=== PATIENT | male | born 1960 | race Caucasian/White ===

== ENCOUNTER 2019-09-21 12:07 | Emergency (ER) | payer BC ==
--- NOTE | 2019-09-21 12:25 | ED ---
GI/ HPI - HPI Summary HPI Summary: This patient is a 58 year old male presenting to [facility] with a chief complaint of black stool this morning. He states that he is currently on chemotherapy and had high doses of medication a week ago. He states his mantle cell lymphoma just went into remission. He states yesterday he went for a blood draw and his platelets were 5 and received a blood transfusion. he had mild nose bleed. Yesterday, he had a good appetite and normal bowel movements and today states he had a lack of appetite. He states he has never experienced black stool or GI bleed before. He denies fever, chills, nausea, and vomiting. Medications reviewed. Allergies noted. - History of Current Complaint Chief Complaint: EDGIBleed Time Seen by Provider: 09/21/19 12:15 Stated Complaint: BLOODY STOOL/LETHARGIC PER PT Hx Obtained From: Patient Onset/Duration: Started Hours Ago Pain Intensity: 0 - Allergy/Home Medications Allergies/Adverse Reactions: Allergies Allergy/AdvReac Type Severity Reaction Status Date / Time Sulfa (Sulfonamide Allergy Vomiting Verified 09/21/19 12:14 Antibiotics) Home Medications: Home Medications Escitalopram * [Lexapro 10 mg (NF)] 10 mg PO BEDTIME 09/21/19 [History Confirmed 09/21/19] Lisinopril/HCTZ 20/25(NF) [Zestoretic 20/(NF)] 1 tab PO DAILY 09/21/19 [ History Confirmed 09/21/19] Loratadine [Claritin] 10 mg PO DAILY 09/21/19 [History Confirmed 09/21/19] Valacyclovir HCl [Valacyclovir] 500 mg PO BEDTIME 09/21/19 [History Confirmed ] PMH/Surg Hx/FS Hx/Imm Hx Cardiovascular History: Reports: Hx Hypertension - Surgical History Surgery Procedure, Year, and Place: left thumb repair/pins Infectious Disease History: No Infectious Disease History: Denies: History Other Infectious Disease, Traveled Outside the [place] in Last 30 Days - Family History Known Family History: Positive: Hypertension - mother - Social History Alcohol Use: None Substance Use Type: Reports: None Smoking Status (MU): Never Smoked Tobacco Have You Smoked in the Last Year: No Review of Systems Negative: Fever, Chills Positive: Other - Black stool. Negative: Vomiting, Nausea All Other Systems Reviewed And Are Negative: Yes Physical Exam - Summary Physical Exam Summary: Constitutional: Well-developed, Well-nourished, Alert. (-) Distressed Skin: Warm, Dry HENT: Normocephalic; Atraumatic Eyes: Conjunctiva normal Neck: Musculoskeletal ROM normal neck. (-) JVD, (-) Stridor, (-) Tracheal deviation Cardio: Rhythm regular, rate normal, Heart sounds normal; Intact distal pulses; Radial pulses are 2+ and symmetric. (-) Murmur Pulmonary/Chest wall: Effort normal. (-) Respiratory distress, (-) Wheezes, (-) Rales Abd: Soft, (-) tenderness, (-) Distension, (-) Guarding, (-) Rebound Musculoskeletal: (-) Edema Lymph: (-) Cervical adenopathy Neuro: Alert, Oriented x3 Psych: Mood and affect Normal Rectal: Dark brown stool. Triage Information Reviewed: Yes Vital Signs On Initial Exam: Initial Vitals Temp Pulse Resp BP Pulse Ox 98.5 F 109 18 131/94 100 09/21/19 12:09 09/21/19 12:09 09/21/19 12:09 09/21/19 12:09 09/21/19 12:09 Vital Signs Reviewed: Yes Procedures - Sedation Patient Received Moderate/Deep Sedation with Procedure: No Diagnostics - Vital Signs Vital Signs Temp Pulse Resp BP Pulse Ox 09/21/19 12:09 98.5 F 109 18 131/94 100 - Laboratory Result Diagrams: 09/21/19 12:38 09/21/19 12:38 Lab Statement: Any lab studies that have been ordered have been reviewed, and results considered in the medical decision making process. Re-Evaluation - Re-Evaluation First Eval Re-Evaluation Time: 17:34 Comment: Patient had a bowel movement that looked dark but not melanotic. Patient is ready for discharge. GIGU Course/Dx - Course Course Of Treatment: Patient is here with 1 episode of black tarry stool. Upon arrival, patient's overall well-appearing with no symptoms. Patient is hemodynamically stable. Patient had brown stool on HEDY. Given patient's cancer history, blood was performed. Patient was found to be pancytopenic including an ANC count of 0. Patient's hemoglobin has dropped from 11-8 in the past couple of days. Oncology was called and they recommended one unit of packed red blood cells and discharge of patient was comfortable and clinically was well-appearing. Patient was offered admission but declined which was comfortable with. Patient had a stool in the ED which was dark brown but not tarry. - Diagnoses Provider Diagnoses: Pancytopenia, Mantle cell lymphoma, Melena - Physician Notifications Discussed Care Of Patient With: Preet Castillo - Hematology/Oncology Time Discussed With Above Provider: 13:21 - Give the patient one unit of PRBCs, and if he looks well clinically then he can be discharged. If the patient does not look well or does not want to be discharged, call back for admission plan. Discharge ED - Sign-Out/Discharge Documenting (check all that apply): Patient Departure - Discharge - Discharge Plan Condition: Stable Disposition: HOME Patient Education Materials: Chelsey (ED) Referrals: Deandra Muse MD [Medical Doctor] - Additional Instructions: Follow up with Dr. Muse. Return to the ED with worsening darkness in your stool, obvious blood in your stool, feeling faint, or have a fever. - Billing Disposition and Condition Condition: STABLE Disposition: Home - Attestation Statements Document Initiated by Amanda: Yes Documenting Scribe: Trevon Griffith Provider For Whom Amanda is Documenting (Include Credential): Garcia Garcia MD Scribe Attestation: I, Trevon Griffith scribed for Garcia Garcia MD on 09/21/19 at 1834. Scribe Documentation Reviewed: Yes Provider Attestation: The documentation as recorded by the Trevon navarro accurately reflects the service I personally performed and the decisions made by me, Garcia Garcia MD Status of Scribe Document: Viewed
[2019-09-21 13:04] LABS: INR 1.17 (0.82-1.09)
[2019-09-21 13:11] LABS: Albumin 4.3 g/dL (3.2-5.2); Calcium 8.9 mg/dL (8.6-10.3); Potassium 3.3 mmol/L (3.5-5.0); Total Bilirubin 0.8 mg/dL (0.2-1.0)
[2019-09-21 13:14] LABS: ABS Lymphocytes 0.2 10^3/ul (1.0-4.8); Eosinophil % 6.1 %; Lymphocyte % 88.9 %; Nucleated Red Blood Cells % 1.2
--- OUTSIDE RECORDS SUMMARY | 2019-09-21 13:14 | XMS REPORT | Summary of Care ---
:1960 Author Organization [facility] Address [address] [address] Care Team Providers Name Role Phone Latoya Cartwright MD Primary Care Provider Reason for Visit Reason Comments Lymphoma currently going through chemo; currently in full remission, has last round of chemo (09/09- 09/14) Hypertension f/u BP 118/58 Heartburn question Zantac extermination inspector use and if need to change med Encounter Details Date Type Department Care Team Description 09/06/2019 Office Visit Danielle Cartwright, Essential hypertension ( Primary Dx); Practice Latoya Souza MD Gastroesophageal reflux disease, esophagitis presence not specified; 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 9 TabIndications: Essential hypertension allopurinol Take 100 mg by 0 Active (ZYLOPRIM) 100 MG mouth DAILY. Oral Tab Cetirizine HCl Take 10 mg by 0 Active (ZYRTEC ALLERGY) 10 mouth DAILY. MG Oral Cap normal saline 0.9% by Intravenous 0 Active 500 mL with route ONE TIME. riTUXimab 100 MG/10ML SOLN IBRUTINIB PO Take 540 mg by 0 Active mouth DAILY. escitalopram Take 1 Tab by 90 Tab 1 Active (LEXAPRO) 10 MG Oral mouth EVERY 9 TabIndications: BEDTIME. Adjustment reaction with anxiety and depression Nebivolol HCl Take 0.5 Tabs 45 Tab 0 Active (BYSTOLIC) 2.5 MG by mouth DAILY. 9 Oral TabIndications: Essential hypertension Lidocaine-Prilocaine Apply to 0 Active 2.5-2.5 % Apply Port-A-Cath 9 externally Cream area 30 to 45 minutes prior to port access as directed (topical anesthetic). prochlorperazine Take 10 mg by 0 Active (COMPAZINE) 10 MG mouth. 9 Oral Tab sennosides-docusate Take 1-2 Tabs 0 Active sodium (SENOKOT-S, by mouth. 9 SENNA S) 8.6-50 MG Oral Tab famotidine (PEPCID) Take 1 Tab by 180 Tab 1 Active 20 MG Oral mouth TWICE 9 TabIndications: DAILY. Gastroesophageal reflux disease, esophagitis presence not specified Cholecalciferol Take 2,000 100 Tab 3 09/06/20 Discontinued (VITAMIN D) 2000 Units by mouth 8 19 (Patient units Oral DAILY. stopped the TabIndications: medication) Vitamin D deficiency LYSINE HCL PO Take 1,000 mg 0 09/06/20 Discontinued by mouth DAILY. 19 (Patient stopped the medication) ranitidine (ZANTAC) take 1 tablet 180 Tab 3 09/06/20 Discontinued 150 MG Oral by mouth twice 9 19 TabIndications: a day Gastroesophageal reflux disease, esophagitis presence not specified fluconazole 0 09/06/20 Discontinued (DIFLUCAN) 100 MG 9 19 (Patient Oral Tab stopped the medication) documented as of this encounter (statuses as of 09/06/2019) Active Problems Problem Noted Date Mantle cell lymphoma 08/13/2018 Right-sided low back pain without sciatica 02/24/2016 Fracture of transverse process of lumbar vertebra 02/07/2015 Overview: L1-L2, right; resolved Lateral epicondylitis 01/30/2013 Dyslipidemia 11/30/2012 GERD (gastroesophageal reflux disease) Overview: Prilosec since early , last EGD mid-; grade B in 02/07 , symptoms resolves with double-dose PPI; no Barretts on biopsy Hypertension DDD (degenerative disc disease), lumbar documented as of this encounter (statuses as of 09/06/2019) Immunizations Name Administration Dates Next Due Influenza (IM) Preservative Free 08/30/2018 PNEUMOCOCCAL POLYSACCHARIDE VACCINE 2018 TDAP Vaccine 10/30/2007 documented as of this encounter Social History Tobacco Use Types Packs/Day Years Used Date Former Smoker 1 15 Quit: 10/12/2010 Smokeless Tobacco: Never Used Alcohol Use Drinks/Week oz/Week Comments Never occasional and responsible; none now, prior 2/month Alcohol Habits Answer Date Recorded How often do you have a drink containing alcohol? Never 07/04/2019 How many drinks containing alcohol do you have on a typical Not asked day when you are drinking? How often do you have six or more drinks on one occasion? Not asked Sex Assigned at Date Recorded Not on file Job Start Date Occupation Industry Not on file Not on file Not on file Travel History Travel Start Travel End No recent travel history available. documented as of this encounter Last Filed Vital Signs Vital Sign Reading Time Taken Comments Blood Pressure 118/58 09/06/2019 8:44 AM EST Pulse 69 09/06/2019 8:44 AM EST Temperature - - Respiratory Rate - - Oxygen Saturation 99% 09/06/2019 8:44 AM EST Inhaled Oxygen Concentration - - Weight 125.6 kg (277 lb) 09/06/2019 8:44 AM EST Height 185.4 cm (6' 1") 09/06/2019 8:44 AM EST Body Mass Index 36.55 09/06/2019 8:44 AM EST documented in this encounter Patient Instructions Patient InstructionsLatoya Cartwright MD - 09/06/2019 8:40 AM ESTStop ranitidine and switch to famotidine 20 mg twice daily. I recommend you continue your Escitalopram until Spring, then we can try to wean off. After your last treatment, start getting back to your diet and exercise. 9: 15 AM EST documented in this encounter Progress Notes Latoya Cartwright MD - 09/06/2019 8:40 AM EST Chief Complaint Patient presents with Lymphoma currently going through chemo; currently in full remission, has last round of chemo (09/09- 09/14) Hypertension f/u BP 118/58 Heartburn question Zantac intermediate use and if need to change med Oncologist: Dr Almaz Griffin, [place], Dr Real Chief Complaint: Oli Holguin is a 58-y.o. male who presents for follow up of depression/ anxiety. His Mantle Cell Lymphoma is in remission History of Present Illness/ROS: GERD: He would like an alternative to Ranitadine, that also combats possible allergic rection: I will switch him to Famotidine Mantle CellLymphoma: He was hospitalized for chemotherapy in [place] 08/12/19 for 5 days. He enrolled onto the [facility] protocol protocol [id number]. He was admitted on for cycle # 3 R-HyperCVAD. He had a platelet transfusion with round 2 when platelet's were under 12K Next PET is 30 days after last round of chemotx. He has one more round on 09/09/19 then plan is maintenance treatment. He hopes that can be done in [place]. He was tested for Clark in the past and negative. He has Mantle Cell lymphoma and is being treated in [place], returns there monthly. His CT scans are improving. PET was negative 04/22/19 Oli was diagnosed with Mantle cell lymphoma on colon biopsy during routine colonoscopy June 2018. He went to [facility] for a week in Late July 2018 for multi- specialty evaluation. Care Everywhere recent laboratory tests, med list, and CT scan results reviewed , from [facility]. He currently returns to [place] monthly, Dr Lema: has a CT every 2 months. He was getting Rituximab, is given benadryl prior but has an itchy throat. They give him Benadryl and a steroid when this happens. He is on on his intensive chemotherapy. His sister flew to [place] with him and is spending the monthwith him. Next month hsi other sister plans to do the same. They are taking turns helping him Hypertension: He is on lisinopril-HCTZ Cardiology at [facility] started him on Bystolic 5 mg daily. It drops his pulse to 40. It is preventative not for atrial fibrillation or tachycardia. However it was stopped in his prior hospitalization in [place]. Anxiety/Depression: We started Lexapro in past visits. It is working well. He is sleeping better at night. He has not had any panic attacks since starting it. He denies suicidal ideation. He feels better on Lexapro and plans to continue it through his lymphoma treatment. His hope is to come off it after. We discussed this today and I recommend he wait until sunnier weather in Spring.He agrees this is a good idea. His past work up includes: PET 04/24/19: Findings: Head and Neck: No hypermetabolic lesions are seen in the brain. The sinuses are well-aerated. There are no residual enlarged FDG avid nodes seen in the neck. Muscletension activity seen in the sternocleidomastoid muscles. Chest: There are no enlarged FDG avid nodes seen in the mediastinal, hilar, or axillary regions. Small residual nodes in the axillary areas with fatty basilio have no visible activity. No suspicious FDG avid pulmonary nodules identified. No pleural or pericardial effusion is seen. Abdomen and Pelvis: Normal FDG activity seen in the liver, spleen, adrenals, and pancreas. Multiple residual subcentimeter mesenteric nodes do not demonstrate any visible activity. There are no residual enlarged FDG avid nodes in the abdominal, pelvic, or inguinal areas. Musculoskeletal: No FDG avid lytic or sclerotic lesion identified within the scanned skeletal structures. IMPRESSION: There is no evidence of residual FDG avid active lymphoma. Lymphoma 5 point score = 1. Examination: CT CHEST ABDOMEN PELVIS W CONTRAST LYMPHOMA, 11/06/2018 Findings: Chest: The multi compartmental adenopathy has improved. When using the same measuring technique, a left axillary node on series 4 image 26 measures 1.5 x 1.1 cm previously 1.8 x 1.3 cm. A posterior mediastinal node on image 86 measures 2.5 x 1.8 cm previously 2.8 x 2.2 cm and a left retrocrural node on image 105 measures 1.8 x 1.6 cm previously 2.1 x 2 cm. There is no pleural effusion. There is no pulmonary consolidation or mass Abdomen and pelvis: The multicompartmental adenopathy has improved. Examples include a hepatic artery node on image 181 measuring 4 x 1.2 cm previously 4.3 x 1.5 cm. A portacaval node on image 188 measures 3.5 x 2.2 cm previously 4.6 x 2.7 cm A mesenteric node on image 233 measures 3.4 x 1.8 cm previously 3.9 x 2.1 cm The liver contains stable cysts The gallbladder, pancreas, and adrenals are normal There are stable hypodensities in the spleen which may represent hamartomas The kidneys function without hydronephrosis and contain stable cysts. Examination: CT NECK W CONTRAST LYMPHOMA on 11/06/2018 7:24 AM Clinical History: Mantle cell lymphoma Indication: Restaging Comparison: CT neck 08/24/2018 Technique: Axial images were acquired to the soft tissues of the neck with intravenous contrast. Findings: Interval improvement of multicompartment cervical adenopathy with decrease in size of the lymph nodes. For example a right submandibular neck node now measures 1.2 x 0.8 cm (image 42/series 10) versus 1.5 x 1 cm on the prior. There is been similar improvement of enlargement of the lymphoid tissue within the nasopharynx and oropharynx. The included intracranial compartment demonstrates no abnormal enhancement or mass effect. The orbits are unremarkable. The paranasal sinuses and mastoid air cells are clear. No new focal lesions of the glandular structures of the neck are identified. IMPRESSION: Improvement of multicompartment cervical adenopathy The bowel is unobstructed. Laboratory tests: See Jerry, laboratory tests reviewed. CT Neck with Contrast Pazeuoji31/13/2019 [facility] Result Impression 1. No worrisome cervical adenopathy. 2. No CT evidence for acute sinusitis. CT Abdomen, pelvis, Chest 08/11/19: IMPRESSION: No evidence for active adenopathy in the chest, abdomen or pelvis. CT Chest Abdomen Pelvis with Contrast Lymphoma (08/24/2018 3:45 PM) CT Chest Abdomen Pelvis with Contrast Lymphoma (08/24/2018 3:45 PM) Impressions Performed At 1. Thoracic, abdominal and pelvic lymphadenopathy. 2. Lymphomatous involvement of the spleen and small bowel. 3. Indeterminant area in the right kidney can be followed for lymphomatous involvement. CT CHEST ABDOMEN PELVIS W CONTRAST LYMPHOMA, 08/24/2018 3:45 PM Clinical History: Mantle cell lymphoma of lymph nodes of multiple sites Indication: Baseline prior to chemotherapy Comparison: None Technique: CT of the chest, abdomen, pelvis was performed with intravenous contrast. Findings: There is supraclavicular, left periscapular, axillary, mediastinal, hilar, paravertebral, retrocrural and anterior and middle diaphragmatic lymphadenopathy. Para-aortic lymph node on image 67 of series5 measures 3.1 x 2.3 cm. Posterior mediastinal lymph node on image 85 of series 5 measures 3 x 2.4 cm. Nodule in the lateral left breast is likely axillary lymphadenopathy. There are no pleural effusions. Subcentimeter pulmonary and pleural nodules and nodular densities are too small to characterize and can be followed. Example images are 40, 74 and 78 of series 6. Subcentimeter hepatic hypodensities are too small to characterize but possibly cysts. Some other vague areas of low density are nonspecific. Such as on image 44 of series 8. There is no biliary ductal dilatation. Gallbladder is present. Spleen is prominent in size measuring 13.8 cm in span. Small hypodense areas in the spleen are likely lymphomatous involvement. Example on image 28 of series 8 measures 2 cm. Adrenals are prominent, nodular and nonspecific. Pancreas shows no focal lesion. Subcentimeter left renal hypodensities are too small to characterize but are possibly cysts. Vague area of low density in the right kidney is too small to characterize. Lymphomatous involvement is possible. It can be followed. There is left gastric, periportal, retroperitoneal, mesenteric, common iliac, external iliac and inguinal lymphadenopathy. Small left internal iliac, mesorectal and superior hemorrhoidal lymph nodes are also likely small lymphadenopathy. Portacaval lymphadenopathy measures 4.8 x 2.6 cm on image 50 of series 8. Confluent mesenteric lymphadenopathy measures 12.4 x 3.2 cm on image 78 of series 8. Right external iliac lymph node measures 3.3 x 1.8 cm on image 163 of series 8. Right femoral lymph node measures 3.5 x 1.4 cm on image 199 of series 8. Hiatal hernia is noted. Nodular areas in the small bowel are consistent with disease involvement. This is most prominent in the terminal ileum. There is no bowel obstruction. Some sclerotic bony areas are nonspecific. Small subcutaneous nodule in the left flank is too small to characterize. Air along the left gluteus teri could be postprocedural or injection sequela. IMPRESSION: 1. Thoracic, abdominal and pelvic lymphadenopathy. 2. Lymphomatous involvement of the spleen and small bowel. 3. Indeterminant area in the right kidney can be followed for lymphomatous involvement. CT Neck with Contrast Lymphoma (08/24/2018 3:45 PM) CT Neck with Contrast Lymphoma (08/24/2018 3:45 PM) Impressions Performed At 1. Multicompartmental cervical adenopathy mainly by number and clustering of lymph nodes rather thanenlargement. 2. Diffusely prominent nasopharyngeal and palatine tonsillar soft tissues. Lymphomatous involvement is possible. [id number] Procedure: Bone marrow aspiration/biopsy Date/Time: 08/24/2018 1:21 PM PETCT Initial Treatment Strategy (08/23/2018 3:18 PM) PETCT Initial Treatment Strategy (08/23/2018 3:18 PM) Impressions Performed At Extensive FDG avid lymphadenopathy above and below the diaphragm. Many of the enlarged lymph nodes have only low-grade metabolic activity, but there is bulky disease and several nodes have marked hypermetabolic activity ranging up to a maximum SUV of 15.4 in the abdomen. NACHO Path Review (08/22/2018 9:27 AM) NACHO Path Review (08/22/2018 9:27 AM) NACHO Path Int The serum protein immunofixation electrophoretic patterns obtained with the use of antisera against IgG, IgA, IgM, bound [place] and bound Lambda light chain proteins show an IgM kappa band in the fast gamma region. 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 CT Chest Abdomen Pelvis with Contrast Lymphoma (11/06/2018 7:24 AM) CT Chest Abdomen Pelvis with Contrast Lymphoma (11/06/2018 7:24 AM) Impressions Performed At Multicompartmental adenopathy above and below the diaphragm has improved compared to 08/24/[address] Muse, CBC from 08/27/19 were also reviewed today as well asl those from July at [facility]. Review of Systems - General ROS: negative for - chills or fever,overall he feels good. He has been hungry a lot this last round of chemotherapy. He has gained a lot of weight ENT ROS: negative for - headaches, visual changes Respiratory ROS: negative for - cough, shortness of breath Cardiovascular ROS: negative for - chest pain, edema Gastrointestinal ROS: no abdominal pain, change in bowel habits Psych: No longer tearful, no panic attacks or anxiety attacks , denies depression Outpatient Medications as of 09/06/2019 Medication Sig Dispense Refill allopurinol (ZYLOPRIM) 100 MG Oral Tab Take 100 mg by mouth DAILY. Cetirizine HCl (ZYRTEC ALLERGY) 10 MG Oral Cap Take 10 mg by mouth DAILY. escitalopram (LEXAPRO) 10 MG Oral Tab Take 1 Tab by mouth EVERY BEDTIME. 90 Tab 1 IBRUTINIB PO Take 540 mg by mouth DAILY. Lidocaine-Prilocaine 2.5-2.5 % Apply externally Cream Apply to Port-A- Cath area 30 to 45 minutes prior to port access as directed (topical anesthetic) . LISINOPRIL-HCTZ 20-25 MG Oral Tab Take 1 Tab by mouth DAILY. 90 Tab 3 Nebivolol HCl (BYSTOLIC) 2.5 MG Oral Tab Take 0.5 Tabs by mouth DAILY. 45 Tab 0 normal saline 0.9% 500 mL with riTUXimab 100 MG/10ML SOLN by Intravenous route ONE TIME. prochlorperazine (COMPAZINE) 10 MG Oral Tab Take 10 mg by mouth. sennosides-docusate sodium (SENOKOT-S, SENNA S) 8.6-50 MG Oral Tab Take 1 -2 Tabs by mouth. No current facility-administered medications on file as of 09/06/2019. Allergies Allergen Reactions Codeine GI Reaction Sulfa Drugs Cross Reactors Other Psychiatric reaction Past Medical History: Diagnosis Date DDD (degenerative disc disease), lumbar Family history of Clark syndrome He was tested and is negative Fracture of transverse process of lumbar vertebra (HCC) 02/07/2015 L1-L2, right; resolved Genetic disease tested negative for Clark syndrome GERD (gastroesophageal reflux disease) Prilosec since early , last EGD mid-; grade B in 02/07 , symptoms resolves with double-dose PPI; no Barretts on biopsy Hypertension Mantle cell lymphoma (HCC) Mantle cell lymphoma (HCC) Seasonal affective disorder (HCC) Past Surgical History: Procedure Laterality Date COLONOSCOPY 2010 Int. hemorrhoids EGD 2010 GERD .med Allergies Allergen Reactions Codeine GI Reaction Sulfa Drugs Cross Reactors Other Psychiatric reaction Social History Socioeconomic History Marital status: Single Spouse name: Not on file Number of children: Not on file Years of education: Not on file Highest education level: Not on file Occupational History Not on file Social Needs Financial resource strain: Not on file Food insecurity: Worry: Not on file Inability: Not on file Transportation needs: Medical: Not on file Non-medical: Not on file Tobacco Use Smoking status: Former Smoker Packs/day: 1.00 Years: 15.00 Pack years: 15.00 Last attempt to quit: 10/12/2010 Years since quittin.9 Smokeless tobacco: Never Used Substance and Sexual Activity Alcohol use: Never Frequency: Never Comment: occasional and responsible; none now, prior 2/month Drug use: No Sexual activity: Yes Partners: Female Lifestyle Physical activity: Days per week: Not on file Minutes per session: Not on file Stress: Not on file Relationships Social connections: Talks on phone: Not on file Gets together: Not on file Attends lutheran service: Not on file Active member of club or organization: Not on file Attends meetings of clubs or organizations: Not on file Relationship status: Not on file Intimate partner violence: Fear of current or ex partner: Not on file Emotionally abused: Not on file Physically abused: Not on file Forced sexual activity: Not on file Other Topics Concern Back Care Not Asked Bike Helmet Not Asked Blood Transfusions Not Asked Caffeine Concern No Exercise No Hobby Hazards Yes Comment: motorcycle International Travel Not Asked Service Not Asked Occupational Exposure Not Asked Seat Belt Not Asked Self-Exams Not Asked Sleep Concern No Special Diet No Stress Concern No Weight Concern Yes Comment: max weight = 280, min weight 220 with regular exercise Social History 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 Lives alone. Family in [place]. Monogamous with girlfriend of several years. since 1999. Family History Problem Relation Age of Onset Heart Mother valve replacement Stroke Mother Hypertension Mother Blood Disease Father Clark syndrome Colon Cancer Father Cancer Father bladder, bone, colon, prostate cancer Prostate Cancer Father Cancer Sister bladder Genetic Sister Clark syndrome Genetic Brother Clark Syndrome PHYSICAL EXAMINATION: BP 118/58 (BP Location: Left arm, Patient Position: Sitting) | Pulse 69 | Ht 6 ' 1" (1.854 m) | Wt277 lb (125.6 kg) | SpO2 99% | BMI 36.55 kg/m Physical Examination: General appearance - alert, well appearing, and in no distress Mental status - alert, oriented to person, place, and time, normal mood, behavior, speech, dress, motor activity, and thought processes Eyes - pupils equal and reactive, extraocular eye movements intact, sclera anicteric Neck - supple, no cervical or supraclavicular adenopathy, carotids upstroke normal bilaterally, no bruits, thyroid exam: thyroid is normal in size without nodules or tenderness, no neck masses palpated. Chest/Lungs - clear to auscultation, no wheezes, rales or rhonchi, symmetric air entry, good aeration Heart - normal rate, regular rhythm, normal S1, S2, no murmurs, rubs, clicks or gallops Abdomen - soft, non tender Neurological - alert, oriented, normal speech, no gross focal findings or movement disorder noted Extremities - dorsalis pedis pulses normal, no pedal edema, no clubbing or cyanosis ASSESSMENT/PLAN: ICD-9-CM ICD-10-CM 1. Essential hypertension 401.9 I10 2. Gastroesophageal reflux disease, esophagitis presence not specified 530.81 K21.9 famotidine (PEPCID) 20 MG Oral Tab 3. Adjustment reaction with anxiety and depression 309.28 F43.23 4. Mantle cell lymphoma of lymph nodes of multiple regions (HCC) 200.48 C83.18 Patient Instructions Stop ranitidine and switch to famotidine 20 mg twice daily. I recommend you continue your Escitalopram until Spring, then we can try to wean off. After your last treatment, start getting back to your diet and exercise. Author: Latoya Cartwright MD 09/06/2019 09:36 documented in this encounter Plan of Treatment Date Type Specialty Care Team Description 01/23/2020 Office Visit Family [facility] Latoya Cartwright MD [address] [place] [address] [phone] Health Maintenance Due Date Last Done Comments ZOSTER IMMUNIZATION SERIES 2012 (1 of 2) DIABETES SCREENING 02/07/2019 02/07/2018, 09/29/2017, 09/29/2017, Additional history exists LIPID DISORDER SCREENING 02/07/2019 02/07/2018, 09/29/2017, 01/16/2015, Additional history exists INFLUENZA VACCINE (#1) 2019 08/30/2018 PNEUMOCOCCAL 0-64 YRS (2 of 2019 2018 3 - PCV13) DEPRESSION SCREENING 04/17/2020 04/17/2019 COLONOSCOPY SCREENING 07/31/2023 07/31/2018, 02/10/2011, 02/10/2011 HPV IMMUNIZATION SERIES Aged Out No longer eligible based on patient's age to complete this topic MENINGOCOCCAL VACCINE IMM Aged Out No longer eligible based on patient's age to complete this topic documented as of this encounter Goals Goal Patient Goal Associated Recent Patient-Stated? Author Type Problems Progress Blood Pressure Blood 118/58 No Gabbie, < 140/90 Pressure (09/06/2019 Latoya Souza, 8:44 AM EST) Note: This is an individualized treatment (blood pressure) goal for Oli Holguin: Displayed above (on the left) is your goal for blood pressure control. Your most recent blood pressure is also shown above, on the right. You should try to achieve blood pressures that are lower than your goal listed above (on the left). Weight loss vs. 18 Lifestyle 0 (09/06/2019 8:44 AM No Latoya Cartwright mo max (lbs) >= 10 EST) Note: This is an individualized lifestyle goal for Oli Holguin: Your body mass index (BMI) is more than 30. You should lose weight. A reasonable starting goal is to lose 10 pounds. Displayed above is how many pounds you have lost thus far towards your 10 pound weight loss goal. Take all prescribed medications as Self-management Latoya Villarreal MD directed Note: This is an individualized self-management goal for Oli Holguin: Please take all prescribed medications as directed. 1. Do not skip doses. If you cannot afford your medications, talk with your doctor. 2. Use a pill reminder system such as a pill box if needed. Your pharmacist can help you with this. 3. Contact your Pharmacy 5 days before your medication runs out. If you cannot take your medications for any reasons, talk with your doctor. 4. Please bring all of your medication bottles and inhalers (or a list of all your medications/inhalers) with you to every visit. Potential barriers to meeting all of your care plan goals will continue to be addressed on an ongoing basis. 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
[2019-09-21 13:15] LABS: Hematocrit 24 % (42-52); Hemoglobin 8.5 g/dL (14.0-18.0); Mean Corpuscular HGB Conc 36 g/dL (31-36); Mean Corpuscular Hemoglobin 33 pg (27-31); Mean Corpuscular Volume 92 fL (80-94); Mean Platelet Volume 7.5 fL (7.4-10.4); Red Blood Count 2.56 10^6 /uL (4.18-5.48); Red Cell Distribution Width 14 % (10-15); White Blood Count 0.2 10^3/uL (3.5-10.8)
[2019-09-21 13:17] LABS: Albumin/Globulin Ratio 1.8 (1-3); BUN/Creatinine Ratio 19.2 (8-20); EGFR African American 124.6 (>60); Globulin 2.4 g/dL (2-4); Total Protein 6.7 g/dL (6.4-8.9)
[2019-09-21 13:20] LABS: Platelet Count 16 10^3/uL (150-450)
[2019-09-21 18:06] VITALS: BP 127/91
== END 2019-09-21 18:00 | disposition home or self-care (01) ==
LOC: ED 12:07
DX: K92.1 Melena (principal); D61.818 Other pancytopenia; C83.10 Mantle cell lymphoma, unspecified site; I10 Essential (primary) hypertension; Z88.2 Allergy status to sulfonamides; Z79.899 Other long term (current) drug therapy
CPT/HCPCS: 36415; 80053; 82270; 85025; 85610; 86850; 86900; 86901; 86922; 99284; P9040